=== PATIENT | female | born 1995 | race Caucasian/White ===

== ENCOUNTER 2016-08-25 17:53 | Outpatient (CLI) | payer MEDICAID ==
[2016-08-25 17:51] VITALS: RESP 20
[~2016-08-25 17:53] MED LIST: ACET-2723 PO; METO-230 PO; ONDA4TAB7 PO; PREN1TAB73 PO
[2016-08-25 18:10] LABS: BASOPHILS % (AUTO) 0.2 % (0-2); EOSINOPHILS # (AUTO) 0.1 T/MM3 (0-0.5); EOSINOPHILS % (AUTO) 0.9 % (0-4); IMMATURE GRANULOCYTE # (AUTO) 0.08 T/MM3 (0.00-0.03); IMMATURE GRANULOCYTE % (AUTO) 0.7 % (0.0-0.5); LYMPHOCYTES # (AUTO) 2.7 T/MM3 (1-4.8); LYMPHOCYTES % (AUTO) 22.5 % (23-45); MEAN CORPUSCULAR HGB 30.8 UUG (26-34); MEAN CORPUSCULAR HGB CONC(MCHC 33.3 GM/DL (31-37); MEAN CORPUSCULAR VOLUME 92.4 UM3 (80-100); MEAN PLATELET VOLUME 10.9 UM3 (9.4-12.4); MONOCYTES # (AUTO) 1.2 T/MM3 (0-0.8); MONOCYTES % (AUTO) 9.8 % (0-9.0); NEUTROPHILS % (AUTO) 65.9 % (33-66); RED BLOOD COUNT 3.57 M/MM3 (4.00-5.20); WBC - WHITE BLOOD COUNT 12.1 T/MM3 (4.5-11.0)
[2016-08-25 18:13] LABS: BLOOD, URINE NEGATIVE (NEGATIVE); COLOR,URINE YELLOW (YELLOW); LEUKOCYTE ESTERASE ,URINE 3+ (NEGATIVE); NITRITE,URINE NEGATIVE (NEGATIVE); UROBILINOGEN,URINE 0.2 EU/DL (NORMAL)
[2016-08-25 18:18] LABS: ALBUMIN 3.4 G/DL (3.5-5.0); ALBUMIN/GLOBULIN RATIO 1.2 RATIO (1.1-2.2); ALKALINE PHOSPHATASE 64 U/L (38-126); ALT (SGPT) 31 U/L (9-52); ANION GAP 10 MEQ/L (5-15); AST (SGOT) 11 U/L (14-36); BUN/CREATININE RATIO 26 RATIO (6-26); CALCIUM 8.8 MG/DL (8.4-10.2); CHLORIDE 106 MEQ/L (98-107); CO2 - CARBON DIOXIDE 26 MEQ/L (22-30); CREATININE 0.5 MG/DL (0.7-1.2); GLOMERULAR FILTRATION RATE 153; GLUCOSE 80 MG/DL (65-110); POTASSIUM 3.8 MEQ/L (3.6-5); SODIUM 142 MEQ/L (134-144); TOTAL PROTEIN 6.3 G/DL (6.3-8.2)
[2016-08-25 18:20] LABS: BACTERIA,URINE 3+ (NEGATIVE); RBC,URINE 0-1 /HPF (0-3); SQUAMOUS EPITHELIAL CELL,UR >50
[2016-08-25] MEDS ORDERED: FOSFOMYCIN 3 GRAM PACKET PO ONE (19:00)
[2016-08-25] MEDS ORDERED: HYDROCODONE/APAP 5/325 (PrePack) SENT HOME ONE (19:00)
--- NOTE | 2016-08-25 20:06 | PNF ---
DATE OF VISIT: 08/25/2016 SUBJECTIVE This is a 21-year-old white female, G3, P1 patient of Dr. Viridiana Oliver to presented to Labor/Delivery today as an outpatient complaining of right upper quadrant pain. Pain began this morning. She is 33.2 weeks gestational age. She is also having occasional dizziness and seeing stars. She has a history of chronic hypertension but all of her blood pressures here have been within normal limits. I did a CBC and a CMP and liver enzymes are normal, platelets are normal and urine protein was negative. An incidental finding was 3+ bacteria and 10-20 whites in the urine with 3+ leukocyte esterase, so will treat her with Monurol. She says the right upper quadrant pain is worse than a few weeks ago when she was seen in the ER in [place]. I reviewed her past medical records and she had a gallbladder sono through our office about a week and a half ago which was negative. The pain had gone away but it flared up again this morning. It is worse than a few weeks ago. On examination it appears to be all right upper quadrant musculoskeletal pain. There is no rebound tenderness and there is no guarding. The pain is anterior chest under the ribs. The patient is breech with the baby's head up there as well. I think we have ruled out preeclampsia. Liver enzymes are normal to low so I do not think there is a liver flare-up causing this. A gallbladder sono has been negative. She does not have an acute abdomen. She took Tylenol about 5:00 p.m. and that is the only thing she has done for it. The pain is worse when she has Krzysztof-Baer contractions and tightening - which is think is being aggravated by a UTI. PLAN Monurol to treat the UTI and is being cultured. I will send her home with a pre -[place] of [place] 5, #6 for severe pain and she can take one of those. I have asked her to buy some Benadryl to use to help calm [place] when she has them and also to use as a sleep aid if needed. She doesn't have a heating pad at home so we are sending her home with a rice pack that she can microwave (she does have a microwave) to help with the right upper quadrant pain as well. She has a followup appointment with Dr. Viridiana Oliver at 10:45 this Thursday. Questions were answered to her and her boyfriend's satisfaction. UVALDO
== END 2016-08-25 19:17 | disposition home or self-care (01) ==
LOC: OBOBS 17:53 → MC 17:53 → OBOBS 19:17
PROVIDERS: ATTEND Obstetrics & Gynecology
DX: O26.893 Other specified pregnancy related conditions, third trimester (principal); R10.11 Right upper quadrant pain; R42 Dizziness and giddiness; H53.9 Unspecified visual disturbance; Z3A.33 33 weeks gestation of pregnancy
CPT/HCPCS: 36415; 80053; 81001; 85025; 87086

== ENCOUNTER 2016-09-20 11:14 | Inpatient (IN) ==
[2016-09-20] MEDS ORDERED: FAMOTIDINE PREMIX 20 MG/50 ML BAG IV ONE (11:23)
[2016-09-20] MEDS ORDERED: CITRIC ACID/SODIUM CITRATE 30ml PO ONE (11:23)
[2016-09-20] MEDS ORDERED: LR 1,000 ML IV SCH (11:30)
[2016-09-20] MEDS ORDERED: MORPHINE SULFATE PF 5mg/10ml INJ (Duramorph) EPI ONE (12:13)
[2016-09-20] MEDS ORDERED: FentaNYL 100 MCG/2 ML INJECTION IVP ONE (12:13)
[2016-09-20] MEDS ORDERED: ONDANSETRON 4 MG/2 ML INJECTION IVP ONE (12:13)
--- NOTE | 2016-09-20 12:14 | Anesthesia Preoperative Report ---
Anesthesia Epidural/Spinal Rec - Date and Time Date: 09/20/16 Preoperative Diagnosis: previous c section, IUGR Procedure: Plan: Spinal - Vital Signs Vital Signs: Temp Pulse Resp BP Pulse Ox 97.9 F 96 18 130/85 98 09/20/16 11:42 09/20/16 11:42 09/20/16 11:42 09/20/16 11:42 09/20/16 11:42 /Para: P:1 - Medictaions & Allergies Inpatient Medications: Current Medications Citric Acid/Sodium Citrate (Oracit) 30 ml PO PREOP ONE Stop: 09/20/16 11:24 Last Admin: 09/20/16 11:46 Dose: 30 ml Lactated Ringer's (Lactated Ringers) 1,000 mls @ 150 mls/hr IV .Q6H40M NICOL Last Admin: 09/20/16 11:45 Dose: 150 mls/hr Famotidine/Sodium Chloride (Pepcid Premix) 20 mg in 50 mls @ 100 mls/hr IV PREOP ONE Stop: 09/20/16 11:52 Last Admin: 09/20/16 11:46 Dose: 100 mls/hr Allergies/Adverse Reactions: Allergies Allergy/AdvReac Type Severity Reaction Status Date / Time No Known Allergies Allergy Verified 09/17/16 12:08 - Home Medications Home Medications: Home Medications Medication Instructions Recorded Confirmed Type Pnv95/Ferrous Fumarate/FA 1 tab PO DAILY #0 tab 05/30/16 09/17/16 History [ Tablet] - Surgical History Anesthesia Reactions: None Hx Family Anesthesia Reaction: No History of Motion Sickness: No - Social History Smoking Status: Never smoker Second Hand Exposure: No Substance Use Type: does not use Alcohol Intake: never Alcohol Intake Frequency: does not drink Hx Chewing Tobacco Use: No - Pertinent Findings Lab Data: CBC and BMP 09/20/16 11:35 - Physical Exam Respiratory Exam: lungs clear, bilateral breath sounds equal Cardiovascular Exam: regular rate and rhythm, no murmur - Airway Assessment Mallampati Score: I TMD: 3 Fingerbreadths Neck Extension: good Overall Assessment: no airway concerns - ASA ASA Score: 2 - Discussion Discussion: Discussed risks/options/alternatives of anesthesia and questions answered. Patient consents. Nursing pain assessment noted. Anesthesia Discussion: family member Attestation Statement: Prior to the delivery of any anesthetic medication, I examined the patient, developed the plan, obtained the patient's consent and discussed the risk and benefits of the procedure with the patient/guardian.
[2016-09-20] MEDS ORDERED: CEFAZOLIN 1 G INJECTION IVP ONE (12:18)
[2016-09-20] MEDS: LR 1,000 ML IV SCH (12:19)
[2016-09-20] MEDS ORDERED: ONDANSETRON 4 MG/2 ML INJECTION ONE (12:22)
[2016-09-20] MEDS ORDERED: DiphenhydrAMINE 50 MG/ML INJECTION IVP PRN (13:01)
[2016-09-20] MEDS ORDERED: NALOXONE 2 MG/2 ML INJECTION PFS IVP PRN (13:01)
[2016-09-20] MEDS ORDERED: ONDANSETRON 4 MG/2 ML INJECTION IVP PRN (13:01)
[2016-09-20] MEDS ORDERED: DiphenhydrAMINE 25 MG CAPSULE PO PRN (13:46)
[2016-09-20] MEDS ORDERED: SALINE FLUSH 10ml SYRINGE IVF PRN (13:46)
[2016-09-20] MEDS ORDERED: D5LR 1,000 ML IV SCH (13:46)
[2016-09-20] MEDS ORDERED: ACETAMINOPHEN 500 MG TABLET PO PRN (13:46)
[2016-09-20] MEDS ORDERED: CALCIUM CARBONATE Chewable 500mg TABLET PO PRN (13:46)
[2016-09-20] MEDS ORDERED: OXYTOCIN DRIP 30 UNIT/500 ML ML IV SCH (13:46)
[2016-09-20] MEDS ORDERED: SIMETHICONE 80 MG CHEWABLE TABLET PO PRN (13:46)
[2016-09-20] MEDS ORDERED: HYDROCORTISONE 2.5% CREAM 30gm RECTALLY PRN (13:46)
--- NOTE | 2016-09-20 13:47 | Operative Note ---
Operative Note - Date of Operation Date of Operation: 09/20/16 - General : 3 Para: 1 Expected Date of Delivery: 10/11/16 (37w0d) - Preoperative Diagnosis Previous Section, Desires sterilization Preoperative Diagnosis: IUGR - Postoperative Diagnosis same as preoperative - Procedure Repeat, Low-transverse , Tubal Ligation (Modified [place]) - Surgeon Surgeon: Surgeon: Viridiana Oliver MD - Prosthetic Dentist Rosemary Lay MD - Anesthesia Anesthesia Provider: Bradley Lizarraga CRNA Anesthesia: Regional Block (Spinal) - Complications Complications: None - Estimated Blood Loss Estimated Blood Loss:: 800 - Findings Findings: viable female, clear fluids, normal uterus, normal adenexa - APGARS : 8,9 - Weight 2.5 kg (2554 gms) - Description of Procedure Description of Procedure: The patient was taken to the operating room where anesthesia was obtained . She was placed in the dorsal supine position with a leftward tilt. A Robison catheter was placed . She was prepared and draped in the normal sterile fashion. A Pfannenstiel incision was made through her previous incision and carried down to the fascia. The fascia was incised in the midline with the scalpel and then extended laterally with the Vance scissors. We encountered permanent suture from her previous delivery. The fascia was elevated, and the underlying rectus muscles were dissected off. The peritoneum was entered during the dissection. This was extended superiorly and inferiorly with good visualization of the bladder. The bladder blade was inserted. Small bladder adhesions were taken down from the front of the uterus. The lower uterine segment was incised in a transverse fashion [id number] with the scalpel and bluntly extended. The membranes were ruptured. The s head was delivered atraumatically. The nose and mouth were suctioned. The cord was clamped and cut. The was handed to Dr. Diallo who was asked to attend the delivery due to IUGR. The placenta delivered spontaneously. The uterus was exteriorized and cleared of all clots and debris. The uterus was closed with running, locked 0-monocryl. The right half of the incision was imbricated with a second layer of 0-monocryl. Hemostasis was obtained on the serosal edges with cautery. A Fallopian tube was identified and carried out to the fimbriae. An avascular segment was grasped with a [place]. The segment was ligated with chromic. Each end of the segment was ligated with silk. The tube segment was excised, and good hemostasis was noted. The procedure was repeated on the other tube. The uterus was returned to the abdomen. The gutters were cleared of all clots and debris. The uterine incision was inspected one final time and still noted to be hemostatic. The peritoneum was closed with running 2-0 vicryl. Hemostasis was obtained in the rectus muscles with the cautery. The fascia was closed with running 0-vicryl. Hemostasis was obtained in the subcutaneous tissue with the cautery. The skin was closed with 4-0 vicryl in a subcuticular manner. Steri- strips were placed. Sponge, sharp, and instrument counts were correct. The patient tolerated the procedure well and was taken to the recovery room in good condition.
[2016-09-20] MEDS: NOZIN NASAL SWAB NAS SCH ×2 (14:21→21:28)
[2016-09-20] MEDS: IBUPROFEN 800 MG TABLET PO PRN (15:33)
[2016-09-20] MEDS: HYDROCODONE/APAP 5mg/325mg TABLET PO PRN ×2 (15:34→19:20)
[2016-09-20] MEDS: SIMETHICONE 80 MG CHEWABLE TABLET PO SCH ×2 (19:22→21:28)
[2016-09-21] MEDS: IBUPROFEN 800 MG TABLET PO PRN ×3 (01:04→18:17)
[2016-09-21] MEDS: HYDROCODONE/APAP 5mg/325mg TABLET PO PRN ×5 (01:04→19:23)
[2016-09-21] MEDS: LR 1,000 ML IV SCH (01:52)
[2016-09-21] MEDS: DOCUSATE CALCIUM 240 MG CAPSULE PO SCH (09:26)
[2016-09-21] MEDS: SIMETHICONE 80 MG CHEWABLE TABLET PO SCH ×4 (09:26→22:50)
[2016-09-21] MEDS: NOZIN NASAL SWAB NAS SCH ×3 (09:31→22:50)
--- NOTE | 2016-09-21 11:39 | OB/GYN Progress Note ---
OB-PP Progress Note - General PPD1 Maternal Group B Strep: Negative Maternal blood type: A+ - Subjective Date: 09/21/16 Lochia: Minimal Pain: contolled Voiding: voiding Nausea or Vomiting Present: No - Objective Vital Signs: Last Vital Signs Temp 98.1 F 09/21/16 09:02 Pulse 80 09/21/16 09:02 Resp 16 09/21/16 09:02 BP 129/73 09/21/16 09:02 Pulse Ox 100 09/21/16 09:02 General: alert and oriented Abdomen: fundus firm, non-tender, no rebound, no guarding Incision: dry, dressed Extremities: non-tender Laboratory: Laboratory Results - last 24 hr 09/20/16 09/20/16 09/20/16 11:32 11:35 18:12 WBC 11.7 H 13.9 H RBC 3.76 L 3.56 L Hgb 11.0 L 10.3 L Hct 34.2 L 32.2 L MCV 91.0 90.4 MCH 29.3 28.9 MCHC 32.2 32.0 RDW Std Deviation 43.5 42.4 Plt Count 274 243 MPV 10.9 10.9 Immature Gran % (Auto) 1.4 H Neut % (Auto) 64.2 Lymph % (Auto) 25.9 [place] % (Auto) 7.5 Eos % (Auto) 0.7 Baso % (Auto) 0.3 Neut # 7.5 Lymph # 3.0 [place] # 0.9 H Eos # 0.1 Baso # 0.0 Abs Immat Gran (auto) 0.16 H Blood Type A Positive Antibody Screen Negative - Assessment Assessment: SP, Repeat C/S - Plan Plan: routine care, continue PNV
--- NOTE | 2016-09-21 12:53 | Anesthesia Postoperative Note ---
- Date and Time Date: 09/21/16 Time: 12:53 - Status Patient Participated in Evaluation: Patient Participated in Person Vital Signs: Temp Pulse Resp BP Pulse Ox 98.1 F 80 16 129/73 100 09/21/16 09:02 09/21/16 09:02 09/21/16 09:02 09/21/16 09:02 09/21/16 09:02 Respiratory Function: Airway Patent Cardiovascular Function: Regular Pulse Mental Status: Alert and Oriented Hydration: Taking PO Fluids Complications During Recover: None Apparent Post Anesthesia Care Notes: full senstion has returned. ambulating without complications. pain tolerable. no complaints - Follow-Up Instructions Instructions: Per Surgeon
[2016-09-21] MEDS: OXYCODONE/APAP 5 MG/325 MG TABLET PO PRN (23:43)
[2016-09-22] MEDS: OXYCODONE/APAP 5 MG/325 MG TABLET PO PRN ×2 (06:29→10:54)
[2016-09-22] MEDS: IBUPROFEN 800 MG TABLET PO PRN (06:29)
[2016-09-22] MEDS: NOZIN NASAL SWAB NAS SCH (06:31)
--- NOTE | 2016-09-22 07:56 | OB/GYN Progress Note ---
OB-PP Progress Note - General PPD1, PPD2 - Subjective Date: 09/22/16 Lochia: Minimal Pain: contolled Voiding: voiding Nausea or Vomiting Present: No - Objective Vital Signs: Last Vital Signs Temp 98.1 F 09/22/16 04:00 Pulse 81 09/22/16 04:00 Resp 16 09/22/16 04:00 BP 141/74 H 09/22/16 04:00 Pulse Ox 100 09/22/16 04:00 Abdomen: fundus firm, no rebound, no guarding Incision: normal, intact Extremities: non-tender Edema: none - Assessment Assessment: SP, Repeat C/S - Plan Plan: routine care, discharge home, continue PNV
--- NOTE | 2016-09-22 08:01 | Discharge Summary ---
Discharge Plan - Med Rec/Dispo Prescriptions: New Ibuprofen [Motrin] 800 mg PO Q8H PRN #60 tab PRN Reason: Pain Oxycodone/APAP 5/325 [Percocet 5/325] 1 - 2 tab PO Q6HPRN PRN #30 PRN Reason: Pain Continue Pnv95/Ferrous Fumarate/FA [ Tablet] 1 tab PO DAILY #0 tab - Disposition 01 Discharged Home, Self-Care
[2016-09-22] MEDS: SIMETHICONE 80 MG CHEWABLE TABLET PO SCH (09:06)
[2016-09-22] MEDS: DOCUSATE CALCIUM 240 MG CAPSULE PO SCH (09:06)
[2016-09-22] MEDS ORDERED: ONDANSETRON ODT 4 MG TABLET PO PRN (11:35)
== END 2016-09-22 14:23 | disposition home or self-care (01) | DRG 765 ==
LOC: MC 11:14
PROVIDERS: ADMIT Obstetrics & Gynecology; ATTEND Obstetrics & Gynecology